=== PATIENT | male | born 1960 | race African-American/Black ===

== ENCOUNTER → 2020-09-25 | Outpatient (CLI) | payer MEDICARE ==
--- NOTE | 2020-09-25 10:16 | Diagnostic Imaging Report ---
Renal ultrasound. Clinical History: Chronic kidney disease. Comparison Study: None available Findings: The right kidney measures 11.3cm and left kidney measures 10.2 cm. There is no evidence of hydronephrosis, nephrolithiasis or renal mass on either side. The echogenicity is normal bilaterally. The cortical thickness on the right side is 1.6 cm and on the left side is 1.4 cm. An oval anechoic structure is present arising from the upper pole of the left kidney measuring 3.7 x 3.2 x 3.0 cm. Both arterial and venous flow is documented to both kidneys. The bladder is unremarkable, with bilateral ureteral jets identified. Prevoid volume is 93 mL. Prostate measures 2.4 x 1.2 x 2.8 cm, 4.3 mL. Impression: Simple benign left renal cyst. Otherwise unremarkable renal ultrasound. Signed by: Ramon Peñaloza on 09/25/2020 10:13 AM
== END ==
LOC: US 09:32
PROVIDERS: ATTEND Urology
DX: N18.9 Chronic kidney disease, unspecified (principal)
CPT/HCPCS: 76770

== ENCOUNTER → 2024-12-12 | Day surgery (SDC) | payer MEDICARE ==
[2024-12-07 09:05] LABS: BASOPHILS # (AUTO) 0.1 (0.0-0.1); EOSINOPHILS # (AUTO) 0.3 (0.0-0.4); EOSINOPHILS % 4.7 % (0.0-6.0); HEMATOCRIT 43.9 % (38.2-49.6); HEMOGLOBIN 12.8 g/dL (14.0-18.0); LYMPHOCYTES # (AUTO) 1.7 (1.0-3.2); LYMPHOCYTES % 22.9 % (18.0-39.1); MEAN CORPUSCULAR HEMOGLOBIN 26.6 pg (28-32); MEAN CORPUSCULAR HGB CONC 29.2 g/dL (31-35); MEAN CORPUSCULAR VOLUME 91.1 fL (81-99); MONOCYTES # (AUTO) 0.6 (0.2-0.8); MONOCYTES % 8.8 % (4.4-11.3); NEUTROPHILS # (AUTO) 4.5 (2.1-6.9); NEUTROPHILS % 62.3 % (38.7-80.0); PLATELET COUNT 142 x10e3/uL (140-360); RED BLOOD COUNT 4.82 x10e6/uL (4.3-5.7); RED CELL DISTRIBUTION WIDTH 15.2 % (11.7-14.4); WHITE BLOOD COUNT 7.25 x10e3/uL (4.8-10.8)
[2024-12-07 09:26] LABS: ANION GAP 15.2 mmol/L (8-16); CALCIUM 9.9 mg/dL (8.4-10.2); CREATININE, SERUM 2.05 mg/dL (0.72-1.25); POTASSIUM 4.2 mmol/L (3.5-5.1)
[~2024-12-12] MED LIST: ALBUTEROL 90 MCG/ACT INHALER INH ONE; ALBUTEROL0.63 MG/3 NEB; AMLODIPINE BESY10 MG PO; ASPIRIN81 MG PO; DEXAMETHASONE SOD PHOS INJ 4 MG/ML SDV ONE; EPHEDRINE SULFATE INJ 50 MG/ML VIAL ONE; FENTANYL CITRATE/PF 100MCG/2 ML INJ ONE; FLOMAX0.4 MG PO; GLIPIZIDE ER5 MG PO; GLYCOPYRROLATE INJ 0.2 MG/ML VIAL ONE; LIDOCAINE HCL 2% LOCAL INJ 5 ML SDV VIAL INJ ONE; LIPITOR10 MG PO; LOSARTAN-HCTZ1 EAC2 PO; MEMANTINE HCL10 MG PO; MIDAZOLAM HCL 2 MG/2 ML VIAL ONE; ONDANSETRON HCL INJ 2MG/ML 2ML 2 MG/ML VIAL ONE; PROAIR DIGIHAL90 MCG INH; PROPOFOL IV EMULSION 10 MG/ML 20 ML VIAL ONE; SERTRALINE HCL50 MG PO; SEVOFLURANE INHAL SOLN 250 ML PEN BTL ONE; TRELEGY ELLIPT1 EACH INH
[2024-12-12] MEDS: CEFTRIAXONE 1 GM VIAL ONE (09:53)
[2024-12-12] MEDS: LACTATED RINGER'S 1,000 ML ONE (09:53)
[2024-12-12] MEDS: GENTAMICIN 80MG/NS 100 ML 100 ML IV ONE (09:54)
[2024-12-12] MEDS: INSULIN REGULAR, HUMAN 100 UNIT/1 ML ONE (11:03)
[2024-12-12 13:22] VITALS: TEMP 97
[2024-12-12] MEDS: PHENAZOPYRIDINE HCL 100 MG TAB ONE (13:57)
[2024-12-12 14:40] VITALS: BP 127/76; PULSE 86; RESP 18; O2SAT 96
== END | disposition home or self-care (01) ==
LOC: OR 09:39
PROVIDERS: ATTEND Urology
DX: N35.819 Other urethral stricture, male, unspecified site (principal); N39.0 Urinary tract infection, site not specified; Q54.9 Hypospadias, unspecified; T83.420A Displacement of implanted penile prosthesis, initial encounter; N40.1 Benign prostatic hyperplasia with lower urinary tract symptoms; N13.8 Other obstructive and reflux uropathy; N32.89 Other specified disorders of bladder; I10 Essential (primary) hypertension; E78.5 Hyperlipidemia, unspecified; J44.9 Chronic obstructive pulmonary disease, unspecified; E11.9 Type 2 diabetes mellitus without complications; E66.01 Morbid (severe) obesity due to excess calories; N20.0 Calculus of kidney; M06.9 Rheumatoid arthritis, unspecified; F32.A Depression, unspecified; Y83.8 Other surgical procedures as the cause of abnormal reaction of the patient, or of later complication, without mention of misadventure at the time of the procedure; Z01.812 Encounter for preprocedural laboratory examination; Z79.82 Long term (current) use of aspirin; Z79.84 Long term (current) use of oral hypoglycemic drugs; Z79.899 Other long term (current) drug therapy
CPT/HCPCS: 36415; 52281; 74420; 80048; 85025; C1758; J0696; J1100; J1580; J2003; J2250; J2405; J2704; J3010; J7121